=== PATIENT | male | born 1970 | race Caucasian/White ===

== ENCOUNTER 2019-10-24 16:07 | Emergency (ER) | payer MEDICAID, MEDICARE ==
[~2019-10-24] VITALS: Ht 175.3 cm; Wt 113.0 kg
[2019-10-24 16:42] VITALS: BP 145/92
[2019-10-24] MEDS ORDERED: LIDOCAINE 2%, 20ML SQ ONE (17:00)
[2019-10-24] MEDS ORDERED: CEFTRIAXONE 1,000 MG IM ONE (17:00)
[2019-10-24] MEDS ORDERED: SULFAMETH./TRIMETHOPRIM DS 800MG/160MG TABLET PO ONE (17:00)
[2019-10-24] MEDS ORDERED: LIDOCAINE-MPF 1%, 5ML ONE (17:04)
[2019-10-24] MEDS ORDERED: SULFAMETH./TRIMETHOPRIM DS 800MG/160MG TABLET ONE (17:21)
[2019-10-24] MEDS ORDERED: CEFTRIAXONE 1,000 MG ONE (17:21)
== END 2019-10-24 18:07 | disposition home or self-care (01) ==
LOC: ED 17:56
DX: L03.221 Cellulitis of neck (principal); F17.210 Nicotine dependence, cigarettes, uncomplicated; F19.90 Other psychoactive substance use, unspecified, uncomplicated
CPT/HCPCS: 10060; 96372; 99283; J0696

== ENCOUNTER 2019-11-10 11:39 | Inpatient (IN) | payer MEDICARE, MEDICAID, OTHER ==
[~2019-11-10] VITALS: Ht 177.8 cm; Wt 99.4 kg
--- NOTE | 2019-11-10 12:01 | NUR ---
PT IT SHOWER/DECON AT THIS TIME.
[2019-11-10] MEDS ORDERED: CEFAZOLIN PMX 1GM/50ML 50 ML IV ONE (12:30)
[2019-11-10] MEDS ORDERED: MUPIROCIN OINT 2%, 1 GM APPL. TP SCH (12:30)
[2019-11-10] MEDS ORDERED: VANCOMYCIN PER PHARMACY MC ONE (12:30)
--- NOTE | 2019-11-10 12:51 | NUR ---
IV START. LABS DRAWN. 2 SETS BLOOD CX COLLECTED AND TAKEN BY LAB. PT ASKING REPEATEDLY WHY ARE WE TAKING SO MUCH BLOOD. PT FINALLY COMPLIANT AND AGREES TO LEAVE IV IN PLACE FOR ABX ADMIN.
[2019-11-10] MEDS ORDERED: PLEASE ENTER ALLERGIES MC SCH (13:00)
[2019-11-10 13:11] LABS: BASOPHILS # (AUTO) 0.03 x10^3/uL (0-0.1); BASOPHILS % (AUTO) 0 % (0-1); EOSINOPHILS % (AUTO) 1 % (1-7); LYMPHOCYTES # (AUTO) 1.36 x10^3/uL (1-3.4); LYMPHOCYTES % (AUTO) 11 % (22-44); MD NO; MEAN CORPUSCULAR HEMOGLOBIN 28.5 pg (27.5-34.5); MEAN CORPUSCULAR HGB CONC 32.9 g/dL (33.2-36.2); MEAN CORPUSCULAR VOLUME 86.7 fL (81-97); MEAN PLATELET VOLUME 7.2 fL (7.4-10.4); MONOCYTES # (AUTO) 0.88 x10^3/uL (0.2-0.8); MONOCYTES % (AUTO) 7 % (2-9); NEUTROPHILS # (AUTO) 10.48 x10^3/uL (1.8-6.8); NEUTROPHILS % (AUTO) 82 % (42-75); PLATELET COUNT 433 x10^3/uL (130-400); RED CELL DISTRIBUTION WIDTH 14.6 % (9.4-14.8)
[2019-11-10 13:19] LABS: ALANINE AMINOTRANSFERASE 37 U/L (12-78); ALBUMIN 3.2 g/dL (3.4-5.0); ANION GAP 7 mmol/L (5-15); CHLORIDE 109 mmol/L (98-107); CREATININE 0.94 mg/dL (0.7-1.3)
[2019-11-10 13:21] LABS: ALKALINE PHOSPHATASE 82 U/L (45-117); BILIRUBIN,TOTAL 1.2 mg/dL (0.2-1.0); TOTAL PROTEIN 7.7 g/dL (6.4-8.2)
[2019-11-10] MEDS ORDERED: NEOSPORIN OINT. PKT 1 PACKET ONE (13:33)
[2019-11-10] MEDS ORDERED: CEFAZOLIN PMX 1GM/50ML 50 ML ONE (13:33)
--- NOTE | 2019-11-10 13:39 | NUR ---
MEDS ADMIN PER DEC. DIET TRAY DELIVERED. PT SITTING UP EATING.
[2019-11-10] MEDS ORDERED: VANCOMYCIN 2,000 MG in SODIUM CHLORIDE 0.9% 500 ML IV ONE (14:00)
--- NOTE | 2019-11-10 14:43 | NUR ---
ARACELIS RECEIVED FROM PHARMACY AND STARTED PER DEC.
[2019-11-10] MEDS: HEPARIN 5,000 UNITS/ML, 1ML SQ SCH ×2 (15:30→23:30)
[2019-11-10] MEDS ORDERED: MINERA CRM, 60GM TP PRN (15:30)
[2019-11-10] MEDS: NICOTINE 14MG/24 HR PATCH.TD24 TD SCH (15:30)
[2019-11-10] MEDS ORDERED: ONDANSETRON ODT 4 MG PO PRN (15:30)
[2019-11-10] MEDS ORDERED: ACETAMINOPHEN 325 MG TABLET PO PRN (15:30)
[2019-11-10] MEDS ORDERED: ONDANSETRON 2MG/ML, 2ML IVPush PRN (15:30)
[2019-11-10] MEDS ORDERED: POTASSIUM CHLORIDE 20 MEQ TAB.ER.PRT PO ONE (15:30)
--- NOTE | 2019-11-10 15:41 | NUR ---
PT RESTING COMFORTABLY ON GURNEY. NADN. PT REFUSING VITALS.
[2019-11-10] MEDS ORDERED: MUPIROCIN OINT 2%, 22GM TP SCH (16:00)
--- NOTE | 2019-11-10 16:01 | NUR ---
REPORT GIVEN TO SONNY TAYLOR
[2019-11-10] MEDS: SODIUM CHLORIDE 0.9% 1,000 ML IV SCH (17:31)
[2019-11-10] MEDS: AMPICILLIN/SULBACTAM 3 GM in SODIUM CHLORIDE 0.9% 100 ML IV SCH ×2 (17:32→23:36)
[2019-11-11 00:51] VITALS: BP 114/76
[2019-11-11 06:50] LABS: BASOPHILS # (AUTO) 0.06 x10^3/uL (0-0.1); BASOPHILS % (AUTO) 1 % (0-1); EOSINOPHILS # (AUTO) 0.17 x10^3/uL (0-0.4); EOSINOPHILS % (AUTO) 2 % (1-7); LYMPHOCYTES # (AUTO) 1.17 x10^3/uL (1-3.4); LYMPHOCYTES % (AUTO) 11 % (22-44); MD NO; MEAN CORPUSCULAR HEMOGLOBIN 28.6 pg (27.5-34.5); MEAN CORPUSCULAR HGB CONC 32.7 g/dL (33.2-36.2); MEAN CORPUSCULAR VOLUME 87.4 fL (81-97); MEAN PLATELET VOLUME 7.6 fL (7.4-10.4); MONOCYTES # (AUTO) 0.91 x10^3/uL (0.2-0.8); MONOCYTES % (AUTO) 9 % (2-9); NEUTROPHILS # (AUTO) 8.34 x10^3/uL (1.8-6.8); NEUTROPHILS % (AUTO) 78 % (42-75); PLATELET COUNT 361 x10^3/uL (130-400); RED CELL DISTRIBUTION WIDTH 15.1 % (9.4-14.8)
[2019-11-11 06:52] LABS: ANION GAP 7 mmol/L (5-15); CALCIUM 7.9 mg/dL (8.5-10.1); CHLORIDE 114 mmol/L (98-107)
[2019-11-11 06:55] LABS: CREATININE 0.81 mg/dL (0.7-1.3)
[2019-11-11] MEDS: HEPARIN 5,000 UNITS/ML, 1ML SQ SCH ×3 (07:30→23:13)
[2019-11-11] MEDS: AMPICILLIN/SULBACTAM 3 GM in SODIUM CHLORIDE 0.9% 100 ML IV SCH ×3 (07:32→23:13)
[2019-11-11] MEDS ORDERED: PROP20TA PO (13:41)
[2019-11-11] MEDS ORDERED: PARO40TA61 PO (13:47)
[2019-11-11] MEDS ORDERED: HYDR50TA13 PO (13:50)
[2019-11-11] MEDS ORDERED: ASEN10TA9 SL (13:58)
[2019-11-11] MEDS ORDERED: ARIP20TA5 PO (14:00)
[2019-11-11] MEDS ORDERED: LIDOCAINE JELLY 2%, 30GM TP PRN (14:00)
[2019-11-11] MEDS ORDERED: GABA600T7 PO (14:02)
[2019-11-11] MEDS ORDERED: ZOLP-413 PO (14:03)
[2019-11-11] MEDS ORDERED: CLON1TAB11 PO (14:05)
[2019-11-11] MEDS: SODIUM CHLORIDE 0.9% 1,000 ML IV SCH (15:26)
[2019-11-11] MEDS: NICOTINE 14MG/24 HR PATCH.TD24 TD SCH (15:30)
[2019-11-11] MEDS ORDERED: PROPRANOLOL 20 MG TABLET PO PRN (17:00)
[2019-11-11 17:30] VITALS: BP 146/102
[2019-11-11] MEDS: MUPIROCIN OINT 2%, 1 GM APPL. TP SCH (20:09)
[2019-11-11] MEDS: ARIPIPRAZOLE 10 MG TABLET PO SCH (20:10)
[2019-11-11] MEDS: GABAPENTIN 300 MG CAPSULE PO SCH (20:10)
[2019-11-11] MEDS: hydrOXyzine 50MG TABLET PO SCH (20:10)
[2019-11-11] MEDS: PAROXETINE 20 MG TABLET PO SCH (20:10)
[2019-11-11] MEDS ORDERED: ZOLPIDEM 5MG TABLET PO SCH (21:00)
[2019-11-12 06:24] LABS: BASOPHILS # (AUTO) 0.04 x10^3/uL (0-0.1); BASOPHILS % (AUTO) 1 % (0-1); EOSINOPHILS # (AUTO) 0.21 x10^3/uL (0-0.4); EOSINOPHILS % (AUTO) 3 % (1-7); LYMPHOCYTES # (AUTO) 1.48 x10^3/uL (1-3.4); LYMPHOCYTES % (AUTO) 18 % (22-44); MD NO; MEAN CORPUSCULAR HEMOGLOBIN 28.8 pg (27.5-34.5); MEAN CORPUSCULAR HGB CONC 33.1 g/dL (33.2-36.2); MEAN PLATELET VOLUME 7.4 fL (7.4-10.4); MONOCYTES # (AUTO) 0.81 x10^3/uL (0.2-0.8); MONOCYTES % (AUTO) 10 % (2-9); NEUTROPHILS % (AUTO) 70 % (42-75); PLATELET COUNT 344 x10^3/uL (130-400); RED CELL DISTRIBUTION WIDTH 14.9 % (9.4-14.8)
[2019-11-12 06:25] LABS: ALANINE AMINOTRANSFERASE 22 U/L (12-78); ALBUMIN 2.6 g/dL (3.4-5.0); ANION GAP 8 mmol/L (5-15); CALCIUM 7.9 mg/dL (8.5-10.1); CHLORIDE 111 mmol/L (98-107); CREATININE 0.91 mg/dL (0.7-1.3)
[2019-11-12 06:27] LABS: ALKALINE PHOSPHATASE 69 U/L (45-117); BILIRUBIN,TOTAL 0.3 mg/dL (0.2-1.0); TOTAL PROTEIN 6.4 g/dL (6.4-8.2)
[2019-11-12] MEDS: HEPARIN 5,000 UNITS/ML, 1ML SQ SCH ×3 (07:30→23:30)
[2019-11-12] MEDS: MUPIROCIN OINT 2%, 1 GM APPL. TP SCH ×2 (08:10→21:55)
[2019-11-12] MEDS: AMPICILLIN/SULBACTAM 3 GM in SODIUM CHLORIDE 0.9% 100 ML IV SCH ×2 (08:10→15:32)
[2019-11-12] MEDS: GABAPENTIN 300 MG CAPSULE PO SCH ×3 (08:11→21:54)
[2019-11-12] MEDS: PAROXETINE 20 MG TABLET PO SCH (08:11)
[2019-11-12] MEDS: hydrOXyzine 50MG TABLET PO SCH ×3 (08:11→21:53)
[2019-11-12 13:22] VITALS: BP 125/88
[2019-11-12] MEDS ORDERED: ZOLPIDEM 5MG TABLET PO PRN (14:00)
[2019-11-12] MEDS: NICOTINE 14MG/24 HR PATCH.TD24 TD SCH (15:30)
[2019-11-12 20:40] VITALS: BP 144/87
[2019-11-12] MEDS: ARIPIPRAZOLE 10 MG TABLET PO SCH (21:54)
[2019-11-13] MEDS: AMPICILLIN/SULBACTAM 3 GM in SODIUM CHLORIDE 0.9% 100 ML IV SCH ×3 (00:50→20:06)
[2019-11-13 02:34] VITALS: BP 135/87
[2019-11-13] MEDS: HEPARIN 5,000 UNITS/ML, 1ML SQ SCH ×3 (07:30→20:31)
[2019-11-13 09:00] VITALS: BP 152/80
[2019-11-13] MEDS: PAROXETINE 20 MG TABLET PO SCH (11:16)
[2019-11-13] MEDS: hydrOXyzine 50MG TABLET PO SCH ×3 (11:16→20:30)
[2019-11-13] MEDS: GABAPENTIN 300 MG CAPSULE PO SCH ×3 (11:16→20:30)
[2019-11-13] MEDS: NICOTINE 14MG/24 HR PATCH.TD24 TD SCH (14:26)
[2019-11-13 20:14] VITALS: BP 132/86
[2019-11-13] MEDS: ARIPIPRAZOLE 10 MG TABLET PO SCH (20:30)
[2019-11-13] MEDS: MUPIROCIN OINT 2%, 22GM TP SCH (20:31)
[2019-11-14 01:55] VITALS: BP 157/99
[2019-11-14] MEDS: AMPICILLIN/SULBACTAM 3 GM in SODIUM CHLORIDE 0.9% 100 ML IV SCH ×3 (03:39→21:27)
[2019-11-14] MEDS: HEPARIN 5,000 UNITS/ML, 1ML SQ SCH ×3 (07:27→22:49)
[2019-11-14] MEDS: hydrOXyzine 50MG TABLET PO SCH ×3 (08:21→21:26)
[2019-11-14] MEDS: GABAPENTIN 300 MG CAPSULE PO SCH ×3 (08:22→21:27)
[2019-11-14] MEDS: PAROXETINE 20 MG TABLET PO SCH (08:26)
[2019-11-14 08:28] VITALS: BP 134/90
[2019-11-14] MEDS: MUPIROCIN OINT 2%, 22GM TP SCH ×2 (08:28→21:00)
[2019-11-14] MEDS ORDERED: DOXYCYCLINE 100MG TABLET ONE (08:40)
[2019-11-14] MEDS: DOXYCYCLINE 100MG TABLET PO SCH ×2 (08:41→21:25)
[2019-11-14 12:52] VITALS: BP 139/91
[2019-11-14 13:36] LABS: HCT (SEDRATE) 44.4 % (39.2-51.8)
[2019-11-14] MEDS: NICOTINE 14MG/24 HR PATCH.TD24 TD SCH (15:30)
[2019-11-14] MEDS ORDERED: MEDROL 4MG DOSEPAK PO SCH (15:30)
[2019-11-14] MEDS: ARIPIPRAZOLE 10 MG TABLET PO SCH (21:28)
[2019-11-14 21:32] VITALS: BP 129/88
[2019-11-15 04:03] VITALS: BP 124/74
[2019-11-15] MEDS: AMPICILLIN/SULBACTAM 3 GM in SODIUM CHLORIDE 0.9% 100 ML IV SCH ×3 (04:03→22:06)
[2019-11-15 07:16] VITALS: BP 127/93
[2019-11-15] MEDS: HEPARIN 5,000 UNITS/ML, 1ML SQ SCH ×3 (07:30→23:30)
[2019-11-15] MEDS ORDERED: DIPHENHYDRAMINE 12.5MG/5ML, 10ML UDC ONE ×3 (08:16→22:02)
[2019-11-15] MEDS: GABAPENTIN 300 MG CAPSULE PO SCH ×3 (08:31→21:58)
[2019-11-15] MEDS: DOXYCYCLINE 100MG TABLET PO SCH ×2 (08:31→21:58)
[2019-11-15] MEDS: MUPIROCIN OINT 2%, 22GM TP SCH ×2 (08:31→21:00)
[2019-11-15] MEDS: PAROXETINE 20 MG TABLET PO SCH (08:31)
[2019-11-15] MEDS: hydrOXyzine 50MG TABLET PO SCH ×3 (08:31→21:58)
[2019-11-15] MEDS: DIPHENHYDRAMINE 12.5MG/5ML ORAL SOL PO SCH ×3 (08:32→21:00)
[2019-11-15 13:45] VITALS: BP 132/81
[2019-11-15] MEDS: NICOTINE 14MG/24 HR PATCH.TD24 TD SCH (15:30)
[2019-11-15 21:32] VITALS: BP 143/78
[2019-11-15] MEDS: ARIPIPRAZOLE 10 MG TABLET PO SCH (21:58)
[2019-11-16 03:50] VITALS: BP 121/84
[2019-11-16] MEDS: AMPICILLIN/SULBACTAM 3 GM in SODIUM CHLORIDE 0.9% 100 ML IV SCH (03:53)
[2019-11-16] MEDS: HEPARIN 5,000 UNITS/ML, 1ML SQ SCH ×3 (07:30→23:45)
[2019-11-16 07:39] VITALS: BP 126/79
[2019-11-16] MEDS ORDERED: DIPHENHYDRAMINE 12.5MG/5ML, 10ML UDC ONE ×3 (08:00→21:34)
[2019-11-16] MEDS: DOXYCYCLINE 100MG TABLET PO SCH ×2 (08:18→21:56)
[2019-11-16] MEDS: GABAPENTIN 300 MG CAPSULE PO SCH ×3 (08:18→23:44)
[2019-11-16] MEDS: hydrOXyzine 50MG TABLET PO SCH ×3 (08:18→23:44)
[2019-11-16] MEDS: PAROXETINE 20 MG TABLET PO SCH (08:18)
[2019-11-16] MEDS: DIPHENHYDRAMINE 12.5MG/5ML ORAL SOL PO SCH ×3 (08:18→23:44)
[2019-11-16] MEDS: MUPIROCIN OINT 2%, 22GM TP SCH ×2 (08:19→21:56)
[2019-11-16] MEDS: NICOTINE 14MG/24 HR PATCH.TD24 TD SCH (13:36)
[2019-11-16 13:52] VITALS: BP 141/102
[2019-11-16] MEDS ORDERED: PRED10TA PO (15:23)
[2019-11-16] MEDS ORDERED: MUPI22OI2 TP (15:23)
[2019-11-16] MEDS ORDERED: DOXY100T PO (15:23)
[2019-11-16 19:35] VITALS: BP 137/94
[2019-11-16] MEDS: ARIPIPRAZOLE 10 MG TABLET PO SCH (21:56)
[2019-11-17 01:14] VITALS: BP 128/88
[2019-11-17] MEDS: HEPARIN 5,000 UNITS/ML, 1ML SQ SCH ×3 (07:30→23:30)
[2019-11-17] MEDS: NICOTINE 14MG/24 HR PATCH.TD24 TD SCH (07:33)
[2019-11-17] MEDS: DIPHENHYDRAMINE 12.5MG/5ML, 10ML UDC PO SCH ×3 (08:36→22:00)
[2019-11-17] MEDS: GABAPENTIN 300 MG CAPSULE PO SCH ×3 (08:37→22:00)
[2019-11-17] MEDS: hydrOXyzine 50MG TABLET PO SCH ×3 (08:37→21:59)
[2019-11-17] MEDS: DOXYCYCLINE 100MG TABLET PO SCH ×2 (08:37→22:00)
[2019-11-17] MEDS: PAROXETINE 20 MG TABLET PO SCH (08:37)
[2019-11-17] MEDS: MUPIROCIN OINT 2%, 22GM TP SCH ×2 (08:38→22:01)
[2019-11-17 13:36] VITALS: BP 130/87
[2019-11-17 21:05] VITALS: BP 144/96
[2019-11-17] MEDS: ARIPIPRAZOLE 10 MG TABLET PO SCH (21:59)
[2019-11-18 01:35] VITALS: BP 127/83
[2019-11-18] MEDS: HEPARIN 5,000 UNITS/ML, 1ML SQ SCH ×3 (07:22→23:30)
[2019-11-18] MEDS: MUPIROCIN OINT 2%, 22GM TP SCH ×2 (09:00→21:00)
[2019-11-18] MEDS: PAROXETINE 20 MG TABLET PO SCH (09:05)
[2019-11-18] MEDS: DOXYCYCLINE 100MG TABLET PO SCH ×2 (09:05→21:47)
[2019-11-18] MEDS: hydrOXyzine 50MG TABLET PO SCH ×3 (09:05→21:47)
[2019-11-18] MEDS: GABAPENTIN 300 MG CAPSULE PO SCH ×3 (09:05→21:47)
[2019-11-18] MEDS: DIPHENHYDRAMINE 12.5MG/5ML, 10ML UDC PO SCH ×3 (09:07→21:00)
[2019-11-18 09:54] VITALS: BP 126/94
[2019-11-18] MEDS: NICOTINE 14MG/24 HR PATCH.TD24 TD SCH (13:26)
[2019-11-18 15:42] VITALS: BP 136/87
[2019-11-18 21:00] VITALS: BP 129/84
[2019-11-18] MEDS: ARIPIPRAZOLE 10 MG TABLET PO SCH (21:47)
[2019-11-19 02:48] VITALS: BP 122/69
[2019-11-19] MEDS: HEPARIN 5,000 UNITS/ML, 1ML SQ SCH (07:30)
[2019-11-19] MEDS: hydrOXyzine 50MG TABLET PO SCH (08:44)
[2019-11-19] MEDS: PAROXETINE 20 MG TABLET PO SCH (08:45)
[2019-11-19] MEDS: GABAPENTIN 300 MG CAPSULE PO SCH (08:45)
[2019-11-19] MEDS: DOXYCYCLINE 100MG TABLET PO SCH (08:45)
[2019-11-19] MEDS: DIPHENHYDRAMINE 12.5MG/5ML, 10ML UDC PO SCH (08:45)
[2019-11-19] MEDS: MUPIROCIN OINT 2%, 22GM TP SCH (08:52)
[2019-11-24] MEDS ORDERED: QUET100T PO (10:51)
== END 2019-11-19 14:15 | disposition home or self-care (01) | DRG 603 ==
LOC: MERGE 11:39 → ED 14:51 → EDIP 15:12 → 3N 16:44
PROVIDERS: ADMIT Hospitalist; ATTEND Internal Medicine
DX: L03.211 Cellulitis of face (principal); L03.221 Cellulitis of neck; L29.9 Pruritus, unspecified; L01.00 Impetigo, unspecified; F25.9 Schizoaffective disorder, unspecified; E66.9 Obesity, unspecified; E87.6 Hypokalemia; F17.210 Nicotine dependence, cigarettes, uncomplicated; I10 Essential (primary) hypertension; F29 Unspecified psychosis not due to a substance or known physiological condition; L29.8 Other pruritus; L98.499 Non-pressure chronic ulcer of skin of other sites with unspecified severity; Z68.31 Body mass index [BMI] 31.0-31.9, adult
CPT/HCPCS: 36415; 80048; 80053; 83605; 83735; 84145; 85025; 85651; 86140; 87040; 99285; G0378; J0295; J0690; J1644; J3370; J7509; J7030; J7040; Q0163

== ENCOUNTER 2020-01-31 16:27 | Emergency (ER) | payer MEDICARE, MEDICAID ==
[~2020-01-31] VITALS: Ht 175.3 cm; Wt 97.7 kg
[~2020-01-31 16:27] MED LIST: ARIP20TA5 PO; ASEN10TA9 SL; BUPR150T73 PO; CLON1TAB11 PO; DOXY100T PO; GABA600T7 PO; HYDR25CA94 PO; HYDR50TA99 PO; MUPI22OI2 TP; PALI3TAB11 PO; PARO20TA4 PO; PARO40TA61 PO; PRED10TA PO; PROP20TA PO; QUET100T PO; QUET200T PO; ZOLP-413 PO
[2020-01-31 16:35] VITALS: BP 111/81
== END 2020-01-31 17:24 | disposition home or self-care (01) ==
LOC: ED 17:12
DX: R21 Rash and other nonspecific skin eruption (principal); L98.9 Disorder of the skin and subcutaneous tissue, unspecified
CPT/HCPCS: 99283

== ENCOUNTER 2020-02-02 21:45 | Emergency (ER) | payer MEDICARE, MEDICAID ==
[2020-02-02 21:54] VITALS: BP 140/88
--- NOTE | 2020-02-02 22:58 | NUR ---
Pt states "i know my ribs are broken." This nurse reassured patient that the xray was clear and his ribs were not broken. Pt states he wants to see the xray, informed patient that he will have to go through the proper channels to see xray. Offered pt taxi voucher, but he refused.
== END 2020-02-02 23:02 | disposition home or self-care (01) ==
LOC: ED 22:02
DX: S20.212A Contusion of left front wall of thorax, initial encounter (principal); F25.9 Schizoaffective disorder, unspecified; F17.210 Nicotine dependence, cigarettes, uncomplicated; W50.1XXA Accidental kick by another person, initial encounter; Y93.89 Activity, other specified; Y92.410 Unspecified street and highway as the place of occurrence of the external cause; Y99.8 Other external cause status
CPT/HCPCS: 71045; 99283

== ENCOUNTER 2020-03-04 11:06 | Emergency (ER) | payer MEDICARE, MEDICAID ==
[~2020-03-04] VITALS: Ht 175.3 cm; Wt 82.9 kg
[2020-03-04 11:20] VITALS: BP 143/92
[2020-03-04] MEDS ORDERED: AMOXICILLIN/CLAV 875-125MG TABLET ONE (11:47)
[2020-03-04] MEDS ORDERED: MUPIROCIN OINT 2%, 22GM TP SCH (12:00)
[2020-03-04] MEDS ORDERED: AMOXICILLIN/CLAV 875-125MG TABLET PO ONE (12:00)
--- NOTE | 2020-03-04 12:04 | NUR ---
Pt provided with oral ABX and ABX oitment to affected skin areas prior to DC. Pt refused DC VS, ripped off BP cuff, refused SpO2 assessment.
== END 2020-03-04 12:15 | disposition home or self-care (01) ==
LOC: ED 12:05
DX: L01.01 Non-bullous impetigo (principal); R00.0 Tachycardia, unspecified
CPT/HCPCS: 99283

== ENCOUNTER 2020-07-04 18:42 | Emergency (ER) | payer MEDICARE, MEDICAID ==
[~2020-07-04] VITALS: Ht 175.3 cm; Wt 80.0 kg
[2020-07-04 18:50] VITALS: BP 102/70
--- NOTE | 2020-07-04 20:30 | NUR ---
belongings returned to pt
== END 2020-07-04 20:31 | disposition home or self-care (01) ==
LOC: ED 19:42
DX: F20.9 Schizophrenia, unspecified (principal); F10.10 Alcohol abuse, uncomplicated; Z76.0 Encounter for issue of repeat prescription; Z72.9 Problem related to lifestyle, unspecified; Y90.9 Presence of alcohol in blood, level not specified
CPT/HCPCS: 99283